=== PATIENT | male | born 1960 | race Caucasian/White ===

== ENCOUNTER 2016-10-31 12:43 | Day surgery (SDC) | payer MEDICARE, MEDICAID ==
[~2016-10-31] VITALS: Ht 177.8 cm; Wt 100.0 kg
--- NOTE | ~2016-10-31 | OP ---
PATIENT NAME: DARYL SCOTT MEDICAL RECORD: [id number] :62 LOCATION:D[facility] ADMISSION DATE: SURGEON: TY TOLEDO DO DATE OF OPERATION: 10/31/2016 PROCEDURE: EGD with foreign body removal (biliary stent). MEDICATIONS: Propofol 200 mg IV per anesthesia. SCOPE: Olympus video gastroscope. INDICATIONS: Removal of biliary stent. ESTIMATED BLOOD LOSS: None. COMPLICATIONS: None. FINDINGS: Informed consent was given. The patient was made comfortable with the above medication. After reaching an adequate level of sedation by slow IV push, the patient was placed on his left side. The endoscope was then advanced under direct visualization through the mouth to the second portion of the duodenum where the biliary stent was encountered. A full examination was performed prior to this without any abnormalities visualized in the esophagus, stomach, or small bowel. The biliary stent was identified with the outer portion of the stent within the duodenum. The stent was grasped with a snare and pulled out the bile duct and out through the mouth with the endoscope. The procedure was terminated at that point. The patient tolerated the procedure well and there were no complications. IMPRESSION: Biliary stent removal, status post stent placement for biliary leak. PLAN AND RECOMMENDATIONS: 1. Discharge home when recovery parameters are met. 2. Continue current medications. 3. Continue current diet. 4. Follow up in GI clinic on as needed basis. TRANSINT:[id number] Voice Confirmation ID: [id number] DOCUMENT ID: [id number] TY TOLEDO DO CC: [id number] DICTATION DATE: 10/31/16 1449 [employer] [place]: 11/01/16 [address] [facility] 10/31/16 [place] [id number]
[2016-10-31] MEDS ORDERED: MOBIC7.5 MG PO (13:46)
[2016-10-31] MEDS ORDERED: BUSPAR5 MG PO (13:46)
[2016-10-31] MEDS ORDERED: LISINOPRIL-HCTZ1 T13 PO (13:46)
[2016-10-31] MEDS ORDERED: GLUCOPHAGE1000 MG PO (13:47)
[2016-10-31] MEDS ORDERED: AMOXICILLIN500 M1 PO (13:47)
[2016-10-31] MEDS ORDERED: CYCLOBENZAPRINE10 MG PO (13:47)
[2016-10-31] MEDS ORDERED: HYDROCODONE-IB1 EAC3 PO (13:47)
[2016-10-31] MEDS ORDERED: NEURONTIN 300300 MG PO (13:48)
[2016-10-31] MEDS ORDERED: SPIRIVA18 MCG INH (13:48)
[2016-10-31] MEDS ORDERED: XANAX1 MG PO (13:48)
[2016-10-31 13:56] VITALS: BP 112/78; Ht 177.8 cm; Wt 100.0 kg
[2016-10-31 14:14] LABS: BASOPHILS 0.3 % (0-2); EOSINOPHILS 1.7 % (0-7); HEMATOCRIT 40.8 % (42.0-54.0); HEMOGLOBIN 13.9 g/dL (13.5-17.5); IMMATURE GRANULOCYTES 0.4 % (0-5); LYMPHOCYTES 37.4 % (15-50); MCH 34.4 pg (26.0-34.0); MCHC 34.1 g/dL (31.0-37.0); MEAN PLATELET VOLUME 9.1 fL (7.4-10.4); MONOCYTES 6.2 % (2-11); PLATELET COUNT 363 10x3/uL (130-400); RBC 4.04 10x6/uL (4.20-6.10); RDW 13.3 % (11.5-14.5); WBC 11.8 10x3/uL (4.8-10.8)
[2016-10-31 14:52] LABS: CALC OSMOLALITY 278 mosm/kg (275-300); CALCIUM 9.3 mg/dL (8.5-10.1); CARBON DIOXIDE 26.2 mmol/L (21.0-32.0); CHLORIDE - SERUM 102 mmol/L (98-107); GLUCOSE 100 mg/dL (74-106); POTASSIUM - SERUM 3.6 mmol/L (3.5-5.1); SODIUM 140 mmol/L (136-145); UREA NITROGEN 12 mg/dL (7-18); eGFR NON AFRICAN AMERICAN 83 mL/min (90-120)
--- NOTE | 2016-10-31 15:43 | NUR ---
1500-RECD FROM GI LAB. ALERT. IV PATENT. RESP WITH EASE. VOOLGA HERE TO REPORT FINDINGS. 1510-FULL LIQUIDS SERVED, 1530-IV D/C. UP TO BATHROOM. VOIDS AND DRESSED. 1535-DISCHARGE INSTRUCTIONS REVIEWED. 1540-D/C VIA WHEELCHAIR WITH FAMILY TO DRIVE
== END 2016-10-31 15:40 | disposition home or self-care (01) ==
LOC: D.OPS 12:43
PROVIDERS: Anesthesiology
DX: T18.3XXA Foreign body in small intestine, initial encounter (principal); Z01.812 Encounter for preprocedural laboratory examination